=== PATIENT | male | born 1990 | race Caucasian/White ===

== ENCOUNTER 2020-04-17 22:21 | Emergency (ER) | payer SELFPAY ==
[2020-04-17 22:41] VITALS: BP 140/82; PULSE 79; RESP 18; TEMP 36.9; O2SAT 98; BMI 44.4
--- NOTE | 2020-04-17 23:41 | ED.NEUROSD ---
HPI - Neuro Symptoms/Deficit General Chief Complaint: Neuro Symptoms/Deficit Stated Complaint: facial numbmess Time Seen by Provider: 04/17/20 23:37 Source: patient Mode of arrival: ambulatory Limitations: no limitations History of Present Illness HPI Narrative: Patient noticed sudden onset of left-sided facial numbness 2 days ago unable to close his left eye and difficulty in eating food no earache no other motor deficit. No history of Lyme disease no headache no rash patient never had similar episode in the past. Patient hearing is normal vision is normal Onset (ago): day(s) (2) Related Data Previous Rx's Medication Instructions Recorded artifi.tears(hypromellose)(PF) 2 drp OPHTHALMIC-LEFT Q4-6H PRN 04/17/20 [ImproVue] #12 ml prednisone 60 mg PO DAILY #21 tab 04/17/20 valacyclovir [Valtrex] 1,000 mg PO TID #21 tab 04/17/20 Allergies Allergy/AdvReac Type Severity Reaction Status Date / Time No Known Allergies Allergy Unverified 01/10/20 16:44 [No Known Allergies*] Review of Systems Review of Systems: Constitutional : No Weight loss, No Fever, No Chills ENT/Mouth : No sore throat, No Rhinorrhea Eyes: No Eye Pain, No Swelling Cardiovascular : No Chest Pain, no palpitations Respiratory : No Cough, No Sputum, no shortness of breath Gastrointestinal : no Nausea, No Vomiting, No Diarrhea, No abdominal Pain, no black stools Genitourinary : No Dysuria, No Urinary Frequency Musculoskeletal : No joint pain, No Myalgias, No Joint Swelling Skin : No Skin Lesions, No rash Neuro : No extremities Weakness, No Numbness, No Dizziness, No Headache Psych : No Anxiety/Panic, No Depression Heme/Lymph: No Bruising, No Lymphadenopathy Endocrine : No Polyuria, No Polydipsia All other systems reviewed and are negative [facility] Past Medical History Medical History Asthma Social History Social History Advance Directives: No Advance Directives Information Provided: No Physical Exam Vital Signs: Vital Signs: Last Vital Signs Temp 98.5 F 04/17/20 22:41 Pulse 79 04/17/20 22:41 Resp 18 04/17/20 22:41 BP 140/82 H 04/17/20 22:41 Pulse Ox 98 04/17/20 22:41 Body Mass Index 44.4 Const: General: cooperative, healthy appearing, comfortable and no acute distress Orientation/consciousness: patient oriented x3 HENMT: Head: Yes normocephalic and Yes atraumatic Ears: hearing grossly normal bilaterally Face and sinus: Yes sinuses nontender Mouth: Normal oral and palatal mucosa present Eyes: Conjunctivae: conjunctivae normal Sclerae: sclerae normal Corneas: corneas normal Pupils: Equal, round and reactive pupils present Resp: Effort & Inspection: normal respiratory effort Auscultation: clear to auscultation bilaterally Cardio: Rhythm: regular rhythm Heart sounds: S1 normal heart sound present and S2 normal heart sound present GI: Inspection: Yes normal to inspection Palpation (GI): Soft to palpation and nontender Neuro: General: patient oriented x3, gait normal, tone normal, moves all extremities, Normal light touch and pain sensation and no focal motor deficits Cranial nerves: Yes Equal, round and reactive pupils present, Yes Normal accommodation reflex present, Yes Bilaterally intact EOM present, Yes Nystagmus not present, Yes Normal facial strength present (Left 7th lower motor neuron deficit>> Solis's palsy) and Yes Midline tongue present MDM - Neuro Symptoms/Deficit MDM Narrative Medical decision making narrative: Patient with left facial palsy involving forehead clinically lower motor neuron palsy/Solis's palsy no other medical history no prior history of Solis's palsy no Lyme disease exposure no family history of multiple sclerosis or lupus patient is otherwise healthy will discharge patient home on prednisone and Valtrex course for 1 week advised about the eye care and follow-up with neurologist Discharge Plan Discharge Clinical Impression: Left-sided Solis's palsy Patient Disposition: Home, Self-Care Instructions: Solis Palsy (ED) Additional Instructions: Take medication as advised. Care of eye as advised. Follow with neurologist if not better in 2 weeks Prescriptions: New prednisone 20 mg tablet 60 mg PO DAILY Qty: 21 RF: 0 valacyclovir [Valtrex] 1 gram tablet 1,000 mg PO TID Qty: 21 RF: 0 ImproVue 1.7 % drops with applicator 2 drp ophthalmic-Left Q4-6H PRN (Reason: dry eye(s)) Qty: 12 RF: 1 Referrals: Joyce Melchor MD [Physician] - 2 weeks Interventions: ED Discharge Assessment Last Done: 04/18/20 00:03 Discharge Date/Time: 04/18/20 00:03
[2020-04-17] MEDS: predniSONE 20 MG TABLET 60 MG PO (23:42)
== END 2020-04-18 00:03 | disposition home or self-care (01) ==
PROVIDERS: Emergency Provider Internal Medicine
DX: G51.0 Bell's palsy (principal)
CPT/HCPCS: 99283

== ENCOUNTER 2020-07-17 19:34 | Emergency (ER) | payer OTHER, SELFPAY ==
[2020-07-17 20:24] VITALS: BP 131/74; PULSE 76; RESP 18; TEMP 36.6; O2SAT 96; BMI 44.6
--- NOTE | 2020-07-17 20:47 | ED_ITS ---
HPI - Back Pain/Injury General Chief Complaint: Back Pain/Injury Stated Complaint: Back pain Time Seen by Provider: 07/17/20 20:33 Source: patient Mode of arrival: ambulatory Limitations: no limitations History of Present Illness HPI Narrative: 30-year-old male with a past medical history of asthma and chronic back pain presenting to the ED with complaints of acute on chronic back pain in the right upper/mid back after helping his friend move a transmission approximately 5 days ago and his pain is gradually worsening. Denies any other symptoms complaints or concerns at this time. MD elicited complaint: back pain and back injury Pertinent past history: recent trauma (Heavy lifting) Onset (ago): day(s) (Five days ago worse today) Timing: constant and progressively worsening Severity: similar to previous episodes Similar Symptoms Previously: Yes Quality: aching and spasming Location: thoracic spine and right upper back Radiation: none Exacerbating factors: movement Relieving factors: none Context: while lifting Associated symptoms: denies other symptoms Treatments prior to arrival: other (Patient reports he has tried multiple [id number] medications and topical patches and no symptomatic relief) Work related injury: No Related Data Previous Rx's Medication Instructions Recorded artifi.tears(hypromellose)(PF) 2 drp OPHTHALMIC-LEFT Q4-6H PRN 04/17/20 [ImproVue] #12 ml prednisone 60 mg PO DAILY #21 tab 04/17/20 valacyclovir [Valtrex] 1,000 mg PO TID #21 tab 04/17/20 acetaminophen [Tylenol Extra 1,000 mg PO QID PRN #14 tab 07/17/20 Strength] cyclobenzaprine 10 mg PO Q8H #10 tab 07/17/20 ibuprofen 800 mg PO Q8H PRN #14 tab 07/17/20 oxycodone 5 mg PO BID PRN #10 tab 07/17/20 Allergies Allergy/AdvReac Type Severity Reaction Status Date / Time No Known Allergies Allergy Verified 07/17/20 20:28 [No Known Allergies*] Review of Systems Review of Systems: Constitutional : No trauma, No Weight loss, No Fever, No Chills, ENT/Mouth : No Hearing loss, No Ear Pain, No Nasal Congestion, No Sinus Pain, No Hoarseness, No sore throat, No Rhinorrhea, No Swallowing Difficulty Cardiovascular : No Chest Pain, No SOB Respiratory : No Cough, No Dyspnea Gastrointestinal : No Nausea, No Vomiting, No Diarrhea, No abdominal Pain, No Hematochezia, No Melena Genitourinary : No Dysuria, No Urinary Frequency, No Hematuria, No Urinary or Bowel Incontinence/retention Musculoskeletal : + Back pain, No neck pain, No joint stiffness, No joint swelling Skin : No Skin Lesions, No rash or signs of infection Neuro : No Weakness, No radiation, No Numbness, No Paresthesias, No headache, no loss of bowel or bladder incontinence, no saddle anesthesia, Focal weakness, No radiation Denies history of IV drug usage. Yes all other systems are reviewed and are negative [facility] Past Medical History Attestation statement: The following information was validated with the patient. Medical History Asthma Back injury Surgical History No significant past surgical history Social History Social History Advance Directives: No Physical Exam Vital Signs: Vital Signs: Last Vital Signs Temp 97.9 F 07/17/20 20:24 Pulse 76 07/17/20 20:24 Resp 18 07/17/20 20:24 BP 131/74 07/17/20 20:24 Pulse Ox 96 07/17/20 20:24 Body Mass Index 44.6 vital signs have been reviewed as normal and appeared to be correct. Blood pressure normal. Heart rate normal. Respiration rate normal. Temperature normal. Oxygen saturation normal. Appearance: Alert. Oriented X3. No acute distress. Head: Normal external exam. Normocephalic. Atraumatic. Eyes: PERRLA. EOMI. Conjunctiva and sclera normal. Eyelids normal. ENT: Pharynx normal. Uvula midline. Moist mucous membranes. Neck: Normal inspection. Neck supple. FROM. No adenopathy. Thyroid Normal. No meningeal signs. No neck mass noted. CVS: Normal heart rate and rhythm. Heart sound normal. No murmurs noted. Pulses normal throughout. Respiratory: No respiratory distress. Painless inspiration. Breath sounds normal. No wheezes/rales/rhonchi noted. Chest nontender. No accessory muscle usage noted or decreased air movement noted. Abdomen: Soft and nontender. Bowel sounds normal in all 4 quadrants. No distention noted. No organomegaly noted. No visible injury noted. Back: No CVA tenderness. Full range of motion noted. No obvious deformities, or edema. Mild para-spinal muscular tenderness thoracic region. Full ROM in back and lower extremities. 5/5 strength hip extension/flexion, abduction, adduction. Straight leg raise test negative on right; Straight leg raise test negative on left; Reflexes normal ankle and knee bilaterally; EHL motor strength normal bilaterally. No rashes/lesion/induration/fluctuance or sign of infection noted. Patient has a normal steady gait. Skin: Skin warm and dry. Normal skin color. Normal skin turgor. No rashes/lesions/lacerations noted. Extremities: No lower extremity edema. Extremities exhibit normal range of motion. Extremities nontender. Neuro: Oriented X 3. No motor deficit. No sensory deficit. Reflexes normal. Course Course Course Narrative: Pt c likely muscular pain, but could be herniated disc. Neuro exam shows no deficits. Not c/w AAA/epidural abscess/dissection.No high risk Hx (Incont, fever, immunosupp, recent surgery/LP, coag, signif trauma, wt loss, puls mass, hx/o Ca, TB, or IVDU) to warrant MRI/CT today. Not c/w Pyelo/UTI/kidney stone/spinal fx. Not cauda equina syndrome. Imaging not currently indicated. DC c meds and f/u. MDM - Back Pain/Injury Medical Records Attestation: I reviewed the patient's medical records. Discharge Plan Discharge Clinical Impression: Thoracic back pain, Spasm of thoracic back muscle Patient Disposition: Home, Self-Care Instructions: Muscle Spasm (ED) Prescriptions: New cyclobenzaprine 10 mg tablet 10 mg PO Q8H Qty: 10 RF: 0 ibuprofen 800 mg tablet 800 mg PO Q8H PRN (Reason: pain) Qty: 14 RF: 0 acetaminophen [Tylenol Extra Strength] 500 mg tablet 1,000 mg PO QID PRN (Reason: fever or pain) Qty: 14 RF: 0 oxycodone 5 mg tablet 5 mg PO BID PRN (Reason: pain) Qty: 10 RF: 0 No Action prednisone 20 mg tablet 60 mg PO DAILY Qty: 21 RF: 0 valacyclovir [Valtrex] 1 gram tablet 1,000 mg PO TID Qty: 21 RF: 0 ImproVue 1.7 % drops with applicator 2 drp ophthalmic-Left Q4-6H PRN (Reason: dry eye(s)) Qty: 12 RF: 1 Referrals: Physician,Unknown [Primary Care Provider] - 2 days (your pcp) Stand Alone Forms: Work/School Release Print Language: Jordanian
[2020-07-17] MEDS: oxyCODONE HCl Immed Release 5 MG TABLET PO (21:09)
[2020-07-17] MEDS: Cyclobenzaprine HCl 10 MG TABLET PO (21:10)
[2020-07-17] MEDS: Ibuprofen 800 MG TABLET PO (21:10)
--- NOTE | 2020-07-17 21:46 | PC.NURSE ---
PT REPORTS SOME IMPROVEMENT SINCE BEING MEDICATED. AWARE AND AGREEABLE TO DISCHARGE
== END 2020-07-17 21:47 | disposition home or self-care (01) ==
PROVIDERS: Emergency Provider Internal Medicine
DX: M54.6 Pain in thoracic spine (principal); M62.830 Muscle spasm of back; F17.200 Nicotine dependence, unspecified, uncomplicated
CPT/HCPCS: 99283; 99284

== ENCOUNTER 2020-08-12 19:40 | Emergency (ER) | payer OTHER, SELFPAY ==
[2020-08-12 20:22] VITALS: BP 138/81; PULSE 66; RESP 16; TEMP 36.7; O2SAT 100; BMI 43.2
--- NOTE | 2020-08-12 20:30 | ED_ITS ---
HPI - General Adult General Chief complaint: General Medical Stated complaint: strept? Time Seen by Provider: 08/12/20 19:49 Source: patient Mode of arrival: ambulatory Limitations: no limitations History of Present Illness MD complaint: throat pain Onset (ago): day(s) (today) Location: mouth Radiation: non-radiation Severity: mild Quality: burning Pain Consistency: intermittent Relieving factors: none Exacerbating factors: other (swallowing) Associated symptoms: denies other symptoms Treatments prior to arrival: none Related Data Previous Rx's Medication Instructions Recorded artifi.tears(hypromellose)(PF) 2 drp OPHTHALMIC-LEFT Q4-6H PRN 04/17/20 [ImproVue] #12 ml prednisone 60 mg PO DAILY #21 tab 04/17/20 valacyclovir [Valtrex] 1,000 mg PO TID #21 tab 04/17/20 acetaminophen [Tylenol Extra 1,000 mg PO QID PRN #14 tab 07/17/20 Strength] cyclobenzaprine 10 mg PO Q8H #10 tab 07/17/20 ibuprofen 800 mg PO Q8H PRN #14 tab 07/17/20 oxycodone 5 mg PO BID PRN #10 tab 07/17/20 Allergies Allergy/AdvReac Type Severity Reaction Status Date / Time No Known Allergies Allergy Verified 07/17/20 20:28 [No Known Allergies*] Review of Systems Review of Systems: Constitutional : No Fever, No Chills, No Fatigue ENT/Mouth : pos sore throat, No Rhinorrhea Eyes: No Eye Pain, No Swelling, Cardiovascular : No Chest Pain, No SOB Respiratory : No Cough, No Sputum Gastrointestinal : No Nausea, No Vomiting Musculoskeletal : No joint pain, No Myalgias Skin : No Skin Lesions, No rash PMFSH Past Medical History Attestation statement: The following information was validated with the patient. Medical History Asthma Back injury Surgical History No significant past surgical history Social History Social History (Updated 08/12/20 @ 20:34 by Gisele Hargrove DO) Alcohol intake: never Smoking Status: Never smoker Advance Directives: No Advance Directives Information Provided: Yes Physical Exam Vital Signs: Vital Signs: Last Vital Signs Temp 98.1 F 08/12/20 20:22 Pulse 66 08/12/20 20:22 Resp 16 08/12/20 20:22 BP 138/81 08/12/20 20:22 Pulse Ox 100 08/12/20 20:22 Body Mass Index 43.2 Appearance: Alert. Oriented X3. No acute distress. Eyes: Pupils equal, round and reactive to light. ENT: Pharynx mild erythema no exudates Neck: Normal inspection. Neck supple. CVS: Normal heart rate and rhythm. Pulses normal. Respiratory: No respiratory distress. Breath sounds normal. Abdomen: Soft and non-tender. Skin: Skin warm and dry. Normal skin color. Normal skin turgor. Extremities: No lower extremity edema. No calf ttp Neuro: Oriented X 3. No motor deficit. No sensory deficit. Medical Decision Making MDM Narrative Medical decision making narrative: 30 yo male with hx of asthma here with one day of sore throat - no evidence of HAND COREMAKER or deeper space infection, able to swallow, not consistent with strep seems more viral - rapid strep and COVID swab Lab Data Labs: Lab Results 08/12/20 Range/Units 20:32 COVID-19 ([facility]) Negative (Negative) COVID-19 Clin Com See Note Discharge Plan Discharge Clinical Impression: Pharyngitis Qualifiers: Pharyngitis/tonsillitis etiology: other specified organisms Qualified Code(s): J02.8 - Acute pharyngitis due to other specified organisms Patient Disposition: Home, Self-Care Instructions: Pharyngitis (ED) Additional Instructions: return to ED for any worsening symptoms or concerns strep screen negative COVID test negative Prescriptions: No Action prednisone 20 mg tablet 60 mg PO DAILY Qty: 21 RF: 0 valacyclovir [Valtrex] 1 gram tablet 1,000 mg PO TID Qty: 21 RF: 0 ImproVue 1.7 % drops with applicator 2 drp ophthalmic-Left Q4-6H PRN (Reason: dry eye(s)) Qty: 12 RF: 1 cyclobenzaprine 10 mg tablet 10 mg PO Q8H Qty: 10 RF: 0 ibuprofen 800 mg tablet 800 mg PO Q8H PRN (Reason: pain) Qty: 14 RF: 0 acetaminophen [Tylenol Extra Strength] 500 mg tablet 1,000 mg PO QID PRN (Reason: fever or pain) Qty: 14 RF: 0 oxycodone 5 mg tablet 5 mg PO BID PRN (Reason: pain) Qty: 10 RF: 0 Stand Alone Forms: Work/School Release
[2020-08-12 21:15] LABS: COVID-19 Test Negative (Negative)
== END 2020-08-12 22:21 | disposition home or self-care (01) ==
PROVIDERS: Emergency Provider Emergency Medicine; PCP Internal Medicine
DX: J02.8 Acute pharyngitis due to other specified organisms (principal); Z20.822 Contact with and (suspected) exposure to COVID-19; J45.909 Unspecified asthma, uncomplicated
CPT/HCPCS: 36415; 87071; 87635; 87880; 99283; 99284

== ENCOUNTER 2020-12-08 17:48 | Emergency (ER) | payer OTHER, SELFPAY ==
[2020-12-08 18:29] VITALS: BP 127/80; PULSE 77; RESP 18; TEMP 36.8; O2SAT 97; BMI 49.8
[2020-12-08] MEDS: Acetaminophen 325 MG TABLET 650 MG PO (18:33)
--- NOTE | 2020-12-08 18:40 | ED.BACK ---
HPI - Back Pain/Injury General Chief Complaint: Back Pain/Injury Stated Complaint: multiple complaints Time Seen by Provider: 12/08/20 18:40 Source: patient Mode of arrival: ambulatory Limitations: no limitations History of Present Illness HPI Narrative: 30 y/o male with history of mild intermittent asthma, morbid obesity, hx back injuries in the past who presents to the ER with lower back pain for the last 2 days after he helped a friend move. He also reports new onset of right ear pain this morning after swimming yesterday. No hearing loss or drainage. His back pain is lower and on both sides. He denies any trauma but admits to heavy lifting to help his friend move. He states the pain sometimes shoots down to his buttocks. Worse with movement and palpation. He walks back and forth to work each day and it is worsening his pain. He is supposed to go to work again tomorrow. He denies any numbness, saddle paresthesias or incontinence. He hsa not taken any medications for the pain. MD elicited complaint: back pain, back injury and other (right ear pain) Pertinent past history: prior back pain Onset (ago): day(s) Timing: intermittent Severity: moderate Similar Symptoms Previously: Yes Quality: aching and spasming Location: right lower back, left upper back and left lower back Radiation: buttocks Exacerbating factors: movement and walking Relieving factors: immobilization Context: while lifting Associated symptoms: denies other symptoms Related Data Previous Rx's Medication Instructions Recorded artifi.tears(hypromellose)(PF) 1.7 2 drp OPHTHALMIC-LEFT Q4-6H PRN 04/17/ % eye drops with applicator #12 ml (ImproVue) prednisone 20 mg tablet 60 mg PO DAILY #21 tab 04/17/20 valacyclovir 1 gram tablet 1,000 mg PO TID #21 tab 04/17/20 (Valtrex) acetaminophen 500 mg tablet 1,000 mg PO QID PRN #14 tab 07/17/20 (Tylenol Extra Strength) cyclobenzaprine 10 mg tablet 10 mg PO Q8H #10 tab 07/17/20 ibuprofen 800 mg tablet 800 mg PO Q8H PRN #14 tab 07/17/20 oxycodone 5 mg tablet 5 mg PO BID PRN #10 tab 07/17/20 cyclobenzaprine 10 mg tablet 10 mg PO TID PRN #10 tab 12/08/20 ibuprofen 800 mg tablet 800 mg PO Q8H PRN #14 tab 12/08/20 lidocaine 5 % topical patch 1 patch TOPICAL DAILY #15 ea 12/08/20 (Lidoderm) nkomjkia-fgbvfukke-uchalizak 3.5 4 drp OTIC (EAR) RIGHT Q6H #10 ml 12/08/20 mg-10,000 unit/mL-1 % ear drops,susp Allergies Allergy/AdvReac Type Severity Reaction Status Date / Time No Known Allergies Allergy Verified 07/17/20 20:28 [No Known Allergies*] Review of Systems Constitutional: Constitutional: Denies chills, Denies fever(s) and Denies weakness Eyes: Eyes: Reports no additional eye complaints ENT: Denies vertigo, Denies ear discharge, Reports otalgia, Denies hearing loss and Denies sore throat Cardiovascular: Cardiovascular: Denies chest pain and Denies dyspnea Respiratory: Respiratory: Denies dyspnea Genitourinary: Genitourinary: Denies flank pain, Denies testicular pain, Denies urinary frequency, Denies urinary hesitancy, Denies urinary incontinence and Denies urinary urgency Musculoskeletal: Musculoskeletal: Reports back pain and Denies numbness Neurologic: Denies vertigo, Denies focal weakness, Denies numbness and Denies weakness [facility] Past Medical History Attestation statement: The following information was validated with the patient. Medical History Asthma Back injury Surgical History No significant past surgical history Social History Social History (Updated 08/12/20 @ 20:34 by Gisele Hargrove DO) Alcohol intake: never Advance Directives: No Advance Directives Information Provided: Yes Physical Exam Vital Signs: Vital Signs: Last Vital Signs Temp 98.2 F 12/08/20 18:29 Pulse 77 12/08/20 18:29 Resp 18 12/08/20 18:29 BP 127/80 12/08/20 18:29 Pulse Ox 97 12/08/20 18:29 Body Mass Index 49.8 Const: General: comfortable and no acute distress Nutritional Appearance: obese Orientation/consciousness: patient oriented x3 Limitations: no limitations HENMT: Head: Yes normal to inspection, Yes normocephalic and Yes atraumatic Ears: hearing grossly normal bilaterally, TM's normal bilaterally and Abnormal EAC present erythema on the right and localized, edema on the right and localized and EAC tenderness on the right and localized; Negative for no otic discharge General nose exam: Normal external nose present Face and sinus: Yes normal facial exam Mouth: Normal oral and palatal mucosa present, lip normal and tongue normal Teeth and gingiva: dentition normal and gingiva normal Throat: Yes posterior oropharynx normal, Yes tonsils normal and Yes uvula midline Eyes: General: appearance normal, both eyes and all related structures Neck: Neck: Yes normal visual inspection and Yes no lymphadenopathy Chest: Chest palpation & inspection: normal inspection of the chest Resp: Effort & Inspection: normal respiratory effort and able to speak in complete sentences : General: Yes no CVA tenderness Back/Spine/Pelvis: Back: no CVA tenderness Cervical Spine: normal cervical lordosis Thoracic/Lumbar Spine: thoracic and lumbar spine normal to inspection, thoraco-lumbar ROM normal and thoraco-lumbar spasm bilaterally in the upper lumbar Skin: General skin exam: no rashes or lesions noted Neuro: General: patient oriented x3 and gait normal Extrem: General: Yes normal to inspection Course Course Course Narrative: 30 y/o male presenting with low back pain after heavy lifting. Exam and presentation are consistent with muscle strain and spasm. No red flag symptoms of LBP. Will treat with NSAID, muscle relaxer, lidoderm and rest. His right ear exam is consistent with otitis externa. Minimal swelling. Will start abx ear drops. Stable for d/c home with plan for outpatient follow up with PCP as needed. Critical Care Time Critical Care Time Critical Care Time: No Discharge Plan Discharge Clinical Impression: Strain of lumbar region Qualifiers: Encounter type: initial encounter Qualified Code(s): S39.012A - Strain of muscle, fascia and tendon of lower back, initial encounter Otitis externa Qualifiers: Otitis externa type: diffuse Chronicity: acute Laterality: right Qualified Code(s): H60.311 - Diffuse otitis externa, right ear Patient Disposition: Home, Self-Care Instructions: Lower Back Exercises (ED), Low Back Strain (ED), Otitis Externa (ED) Additional Instructions: Use the prescribed antibiotic ear drops for your ear for the next 1 week. Do not get water in your ear. No swimming. Your back pain is most likely due to muscle strain and spasm. No bending, lifting or twisting. Use ice several times per day for 20 minutes at a time for the next 48 hours and then change to heat. Take medications as prescribed to help with pain and discomfort. Follow up with your Primary Care Doctor this week. If your pain worsens, if you develop new numbness, tingling, weakness, loss of function or incontinence call 911 or come back to the ER right away for evaluation. Prescriptions: New fwonswos-owiknnmim-ZY 3.5-10,000-1 mg/mL-unit/mL-% drops,suspension 4 drp otic (ear) right Q6H Qty: 10 RF: 0 cyclobenzaprine 10 mg tablet 10 mg PO TID PRN (Reason: muscle spasm) Qty: 10 RF: 0 ibuprofen 800 mg tablet 800 mg PO Q8H PRN (Reason: pain) Qty: 14 RF: 0 lidocaine [Lidoderm] 5 % adhesive patch,medicated 1 patch topical DAILY Qty: 15 RF: 0 No Action prednisone 20 mg tablet 60 mg PO DAILY Qty: 21 RF: 0 valacyclovir [Valtrex] 1 gram tablet 1,000 mg PO TID Qty: 21 RF: 0 ImproVue 1.7 % drops with applicator 2 drp ophthalmic-Left Q4-6H PRN (Reason: dry eye(s)) Qty: 12 RF: 1 cyclobenzaprine 10 mg tablet 10 mg PO Q8H Qty: 10 RF: 0 ibuprofen 800 mg tablet 800 mg PO Q8H PRN (Reason: pain) Qty: 14 RF: 0 acetaminophen [Tylenol Extra Strength] 500 mg tablet 1,000 mg PO QID PRN (Reason: fever or pain) Qty: 14 RF: 0 oxycodone 5 mg tablet 5 mg PO BID PRN (Reason: pain) Qty: 10 RF: 0 Stand Alone Forms: Work/School Release
== END 2020-12-08 19:19 | disposition home or self-care (01) ==
PROVIDERS: Emergency Provider Emergency Medicine
DX: S39.012A Strain of muscle, fascia and tendon of lower back, initial encounter (principal); X50.0XXA Overexertion from strenuous movement or load, initial encounter; Y93.E6 Activity, residential relocation; Y92.9 Unspecified place or not applicable; Y99.9 Unspecified external cause status; H60.311 Diffuse otitis externa, right ear
CPT/HCPCS: 99283

== ENCOUNTER 2021-11-13 12:47 | Emergency (ER) | payer OTHER, SELFPAY ==
[2021-11-13 13:31] VITALS: BP 151/82; PULSE 81; RESP 20; TEMP 36.6; O2SAT 97; BMI 48.6
[2021-11-13 14:45] LABS: COVID-19 Test Positive (Negative); IDNOW Serial# 55D5AD1C; Influenza A Negative (Negative); Influenza B2 Negative (Negative)
[2021-11-13] MEDS: Cyclobenzaprine HCl 10 MG TABLET PO (15:22)
--- NOTE | 2021-11-13 15:34 | ED_ITS ---
HPI - URI/Sore Throat General Chief Complaint: Back Pain/Injury Stated Complaint: abd pain headache Time Seen by Provider: 11/13/21 15:15 Source: patient Mode of arrival: ambulatory Limitations: no limitations History of Present Illness HPI Narrative: Patient complaining of respiratory symptoms nasal congestion cold for last 2 3 days other family members are also sick with same patient not been vaccinated against COVID also complaining of upper back pain after moving the stuff at work for last few days no shortness of breath no fever Related Data Previous Rx's Medication Instructions Recorded artifi.tears(hypromellose)(PF) 1.7 2 drp ophthalmic-Left Q4-6H PRN 04/17/ % eye drops with applicator dry eye(s) #12 mL (ImproVue) prednisone 20 mg tablet 60 mg PO DAILY #21 tabs 04/17/20 valacyclovir 1 gram tablet 1,000 mg PO TID #21 tabs 04/17/20 (Valtrex) acetaminophen 500 mg tablet 1,000 mg PO QID PRN fever or pain 07/17/20 (Tylenol Extra Strength) #14 tabs cyclobenzaprine 10 mg tablet 10 mg PO Q8H Muscle spasm #10 tabs 07/17/20 ibuprofen 800 mg tablet 800 mg PO Q8H PRN pain #14 tabs 07/17/20 oxycodone 5 mg tablet 5 mg PO BID PRN pain #10 tabs 07/17/20 cyclobenzaprine 10 mg tablet 10 mg PO TID PRN muscle spasm #10 12/08/20 tabs ibuprofen 800 mg tablet 800 mg PO Q8H PRN pain #14 tabs 12/08/20 lidocaine 5 % topical patch 1 patch topical DAILY #15 ea 12/08/20 (Lidoderm) nldtjutq-voipqbdem-nsqaymzcw 3.5 4 drp otic (ear) right Q6H #10 mL 12/08/20 mg-10,000 unit/mL-1 % ear drops,susp cyclobenzaprine 10 mg tablet 10 mg PO Q8H #20 tabs 11/13/21 tramadol 50 mg tablet 50 mg PO Q6H PRN pain #20 tabs 11/13/21 Allergies Allergy/AdvReac Type Severity Reaction Status Date / Time No Known Allergies Allergy Verified 07/17/20 20:28 [No Known Allergies*] Review of Systems Review of Systems: Yes all other systems are reviewed and are negative [facility] Past Medical History Medical History Asthma Back injury Surgical History No significant past surgical history Social History Social History Alcohol intake: never Advance Directives: No Advance Directives Information Provided: No Physical Exam Vital Signs: Vital Signs: Last Vital Signs Temp 97.9 F 11/13/21 13:31 Pulse 81 11/13/21 13:31 Resp 20 11/13/21 13:31 BP 151/82 H 11/13/21 13:31 Pulse Ox 97 11/13/21 13:31 O2 Del Method 11/13/21 13:31 BMI result Body Mass Index 48.6 Appearance: Alert. Oriented X3. No acute distress. ENT: Pharynx normal. Oral Mucosa moist Neck: Normal inspection. Neck supple. CVS: Normal heart rate and rhythm. Pulses normal. Respiratory: No respiratory distress. Equal air entry bilateral, no wheezing/rales/rhonchi Skin: Skin warm and dry. Normal skin color. Normal skin turgor. Extremities: No lower extremity edema. Back: Tenderness paraspinal muscles on the right side no midline focal tenderness good range of movement no rash Neuro: Oriented X 3. MDM - URI/Sore Throat Lab Data Attestation: I reviewed the patient's lab results. Labs: Lab Results 11/13/21 11/13/21 Range/Units 14:23 14:23 COVID-19 (YIMI) Positive A (Negative) COVID-19 Clin Com See Note Influenza Type A (ERIK) Negative (Negative) Influenza Type B (ERIK) Negative (Negative) Influenza A & B Note See Note Discharge Plan Discharge Clinical Impression: COVID-19, Muscle strain of left upper back Patient Disposition: Home, Self-Care Instructions: Thoracic Back Strain (ED), COVID-19 (Coronavirus Disease 2019) (ED) Additional Instructions: Social distancing as advised Ibuprofen and muscle relaxant as prescribed for back pain Follow with PCP if any concerns Prescriptions: New cyclobenzaprine 10 mg tablet 10 mg PO Q8H Qty: 20 0RF tramadol 50 mg tablet 50 mg PO Q6H PRN (Reason: pain) Qty: 20 0RF No Action prednisone 20 mg tablet 60 mg PO DAILY Qty: 21 0RF valacyclovir [Valtrex] 1 gram tablet 1,000 mg PO TID Qty: 21 0RF ImproVue 1.7 % drops with applicator 2 drp ophthalmic-Left Q4-6H PRN (Reason: dry eye(s)) Qty: 12 1RF cyclobenzaprine 10 mg tablet 10 mg PO Q8H Qty: 10 0RF ibuprofen 800 mg tablet 800 mg PO Q8H PRN (Reason: pain) Qty: 14 0RF acetaminophen [Tylenol Extra Strength] 500 mg tablet 1,000 mg PO QID PRN (Reason: fever or pain) Qty: 14 0RF oxycodone 5 mg tablet 5 mg PO BID PRN (Reason: pain) Qty: 10 0RF ilxqimej-ozegpngtg-PG 3.5-10,000-1 mg/mL-unit/mL-% drops,suspension 4 drp otic (ear) right Q6H Qty: 10 0RF cyclobenzaprine 10 mg tablet 10 mg PO TID PRN (Reason: muscle spasm) Qty: 10 0RF ibuprofen 800 mg tablet 800 mg PO Q8H PRN (Reason: pain) Qty: 14 0RF lidocaine [Lidoderm] 5 % adhesive patch,medicated 1 patch topical DAILY Qty: 15 0RF Rx Instructions: leave on most painful area for up to 12 hrs Interventions: ED Discharge Assessment Last Done: 11/13/21 16:09 Discharge Date/Time: 11/13/21 16:10
== END 2021-11-13 16:10 | disposition home or self-care (01) ==
PROVIDERS: Emergency Provider Internal Medicine
DX: U07.1 COVID-19 (principal); S29.012A Strain of muscle and tendon of back wall of thorax, initial encounter; X50.0XXA Overexertion from strenuous movement or load, initial encounter; Y93.89 Activity, other specified; Y92.512 Supermarket, store or market as the place of occurrence of the external cause; Y99.0 Civilian activity done for income or pay
CPT/HCPCS: 87502; 87635; 99283

== ENCOUNTER 2022-03-25 21:04 | Emergency (ER) | payer OTHER, SELFPAY ==
--- NOTE | 2022-03-25 | ECG_ITS ---
Test Reason : SOB CHEST PAIN Blood Pressure : / mmHG Vent. Rate : 095 BPM Atrial Rate : 095 BPM P-R Int : 116 ms QRS Dur : 092 ms QT Int : 342 ms P-R-T Axes : 028 010 035 degrees QTc Int : 429 ms Normal sinus rhythm Minimal voltage criteria for LVH, may be normal variant ( R in aVL ) Borderline ECG No previous ECGs available Referred By: Generic ED Physician Electronically Signed By:Alexandr Alvares
[2022-03-25 21:13] VITALS: BP 143/77; PULSE 89; RESP 16; TEMP 36.2; O2SAT 96; BMI 48.8
--- NOTE | 2022-03-25 21:59 | ED.GENADULT ---
HPI - General Adult General Chief complaint: General Medical Stated complaint: CP/Anxiety after eating Edibles Time Seen by Provider: 03/25/22 21:59 Source: patient Mode of arrival: ambulatory Limitations: no limitations History of Present Illness HPI narrative: Patient no significant past medical history had edible and rhino pill earlier today around 16:00 woke up at 6 with feeling cold whole body feeling weird sleepy and tired. At this time patient feeling much better now patient had edible in the past but never had similar symptoms Related Data Previous Rx's Medication Instructions Recorded artifi.tears(hypromellose)(PF) 1.7 2 drp ophthalmic-Left Q4-6H PRN 04/17/ % eye drops with applicator dry eye(s) #12 mL (ImproVue) prednisone 20 mg tablet 60 mg PO DAILY #21 tabs 04/17/20 valacyclovir 1 gram tablet 1,000 mg PO TID #21 tabs 04/17/20 (Valtrex) acetaminophen 500 mg tablet 1,000 mg PO QID PRN fever or pain 07/17/20 (Tylenol Extra Strength) #14 tabs cyclobenzaprine 10 mg tablet 10 mg PO Q8H Muscle spasm #10 tabs 07/17/20 ibuprofen 800 mg tablet 800 mg PO Q8H PRN pain #14 tabs 07/17/20 oxycodone 5 mg tablet 5 mg PO BID PRN pain #10 tabs 07/17/20 cyclobenzaprine 10 mg tablet 10 mg PO TID PRN muscle spasm #10 12/08/20 tabs ibuprofen 800 mg tablet 800 mg PO Q8H PRN pain #14 tabs 12/08/20 lidocaine 5 % topical patch 1 patch topical DAILY #15 ea 12/08/20 (Lidoderm) [id number]-cujzoftxr-dtlacgsjt 3.5 4 drp otic (ear) right Q6H #10 mL 12/08/20 mg-10,000 unit/mL-1 % ear drops,susp cyclobenzaprine 10 mg tablet 10 mg PO Q8H #20 tabs 11/13/21 tramadol 50 mg tablet 50 mg PO Q6H PRN pain #20 tabs 11/13/21 Allergies Allergy/AdvReac Type Severity Reaction Status Date / Time No Known Allergies Allergy Verified 07/17/20 20:28 [No Known Allergies*] Review of Systems Review of Systems: Yes all other systems are reviewed and are negative [facility] Past Medical History Medical History Asthma Back injury Surgical History No significant past surgical history Social History Social History Alcohol intake: never Advance Directives: No Advance Directives Information Provided: Yes Physical Exam ED Vital Signs: Vital Signs - 24 hr 03/25/22 21:13 03/25/22 23:23 Temperature 97.2 F Pulse Rate 89 80 Respiratory Rate 16 20 Blood Pressure 143/77 H 119/63 Pulse Oximetry 96 95 Oxygen Delivery Method Room Air Room Air BMI result Body Mass Index 48.8 Appearance: Alert. Oriented X3. No acute distress. Eyes: PERRLA, No Nystagmus ENT: Pharynx normal. Oral Mucosa moist Neck: Normal inspection. Neck supple. CVS: Normal heart rate and rhythm. Pulses normal. Respiratory: No respiratory distress. Equal air entry bilateral, no wheezing/rales/rhonchi Abdomen: Soft and nontender. Bowel sounds are present, Skin: Skin warm and dry. Normal skin color. Normal skin turgor. Extremities: No lower extremity edema. No calf tenderness Neuro: Oriented X 3. No motor deficit. Medical Decision Making MDM Narrative Medical decision making narrative: Will check urine drug screening reason Lab Data Labs: Lab Results 03/25/22 Range/Units 22:32 Urine Opiates Screen Not Detected (Not Detect) Urine Fentanyl Screen Not Detected (Not Detect) Ur Barbiturates Screen Not Detected (Not Detect) Ur Phencyclidine Scrn Not Detected (Not Detect) Ur Amphetamines Screen Not Detected (Not Detect) U Benzodiazepines Scrn Not Detected (Not Detect) Urine Cocaine Screen Not Detected (Not Detect) U Marijuana (THC) Screen POSITIVE H (Not Detect) ECG Data Attestation: I personally reviewed and interpreted this ECG as follows: Interpretation: Normal sinus rhythm heart rate 95 beats per minute normal interval normal axis no acute ST wave changes Discharge Plan Discharge Clinical Impression: Cannabis abuse Patient Disposition: Home, Self-Care Instructions: Cannabis Abuse (ED) Additional Instructions: Try to avoid cannabis and other drugs as advised Prescriptions: No Action prednisone 20 mg tablet 60 mg PO DAILY Qty: 21 0RF valacyclovir [Valtrex] 1 gram tablet 1,000 mg PO TID Qty: 21 0RF ImproVue 1.7 % drops with applicator 2 drp ophthalmic-Left Q4-6H PRN (Reason: dry eye(s)) Qty: 12 1RF cyclobenzaprine 10 mg tablet 10 mg PO Q8H Qty: 10 0RF ibuprofen 800 mg tablet 800 mg PO Q8H PRN (Reason: pain) Qty: 14 0RF acetaminophen [Tylenol Extra Strength] 500 mg tablet 1,000 mg PO QID PRN (Reason: fever or pain) Qty: 14 0RF oxycodone 5 mg tablet 5 mg PO BID PRN (Reason: pain) Qty: 10 0RF uecttakk-pgswsqekj-RP 3.5-10,000-1 mg/mL-unit/mL-% drops,suspension 4 drp otic (ear) right Q6H Qty: 10 0RF cyclobenzaprine 10 mg tablet 10 mg PO TID PRN (Reason: muscle spasm) Qty: 10 0RF ibuprofen 800 mg tablet 800 mg PO Q8H PRN (Reason: pain) Qty: 14 0RF lidocaine [Lidoderm] 5 % adhesive patch,medicated 1 patch topical DAILY Qty: 15 0RF Rx Instructions: leave on most painful area for up to 12 hrs cyclobenzaprine 10 mg tablet 10 mg PO Q8H Qty: 20 0RF tramadol 50 mg tablet 50 mg PO Q6H PRN (Reason: pain) Qty: 20 0RF Interventions: ED Discharge Assessment Last Done: 03/25/22 23:26 Discharge Date/Time: 03/25/22 23:27
[2022-03-25 22:49] LABS: Amphetamine Screen Urine Not Detected (Not Detect); Barbiturates, Urine Not Detected (Not Detect); Benzodiazepines Screen Urine Not Detected (Not Detect); Cannabinoid Screen Urine POSITIVE (Not Detect); Cocaine Screen Urine Not Detected (Not Detect); Fentanyl, urine Not Detected (Not Detect); Opiate Screen Urine Not Detected (Not Detect); Phencyclidine Screen Urine Not Detected (Not Detect)
[2022-03-25 23:23] VITALS: BP 119/63; PULSE 80; RESP 20; O2SAT 95
== END 2022-03-25 23:27 | disposition home or self-care (01) ==
PROVIDERS: Emergency Provider Internal Medicine
DX: F12.10 Cannabis abuse, uncomplicated (principal); F41.9 Anxiety disorder, unspecified
CPT/HCPCS: 80307; 93005; 99283; 99284

== ENCOUNTER 2022-07-01 09:18 | Emergency (ER) | payer OTHER, SELFPAY ==
[2022-07-01 09:41] VITALS: BP 134/63; PULSE 70; RESP 18; TEMP 36.1; O2SAT 97; BMI 46.3
--- NOTE | 2022-07-01 10:16 | ED.GENADULT ---
HPI - General Adult General Chief complaint: Back Pain/Injury Stated complaint: Upper back pain Time Seen by Provider: 07/01/22 10:16 Source: patient and RN notes reviewed Mode of arrival: ambulatory Limitations: no limitations History of Present Illness HPI narrative: 32-year-old male presents for evaluation of mid upper back pain. He reports that his symptoms started a couple of days ago. He reports that in the size but his pain worse. He reports a history of back pain and back problems. He states ?I think I have a pinched nerve. ? His pain radiates up into his neck? it is causing me a headache. ? He denies any falls, specific injuries that he can remember. He does report that he does heavy lifting at work Denies any numbness, tingling or weakness PE Denies any lower extremity pain, or weakness Denies any lower back pain Denies any chest pain, shortness of breath, palpitations Related Data Previous Rx's Medication Instructions Recorded artifi.tears(hypromellose)(PF) 1.7 2 drp ophthalmic-Left Q4-6H PRN 04/17/20 % eye drops with applicator dry eye(s) #12 mL (ImproVue) prednisone 20 mg tablet 60 mg PO DAILY #21 tabs 04/17/20 valacyclovir 1 gram tablet 1,000 mg PO TID #21 tabs 04/17/20 (Valtrex) acetaminophen 500 mg tablet 1,000 mg PO QID PRN fever or pain 07/17/20 (Tylenol Extra Strength) #14 tabs cyclobenzaprine 10 mg tablet 10 mg PO Q8H Muscle spasm #10 tabs 07/17/20 ibuprofen 800 mg tablet 800 mg PO Q8H PRN pain #14 tabs 07/17/20 oxycodone 5 mg tablet 5 mg PO BID PRN pain #10 tabs 07/17/20 cyclobenzaprine 10 mg tablet 10 mg PO TID PRN muscle spasm #10 12/08/20 tabs ibuprofen 800 mg tablet 800 mg PO Q8H PRN pain #14 tabs 12/08/20 lidocaine 5 % topical patch 1 patch topical DAILY #15 ea 12/08/20 (Lidoderm) akcxwmxu-vvagmalay-btnnbilpp 3.5 4 drp otic (ear) right Q6H #10 mL 12/08/20 mg-10,000 unit/mL-1 % ear drops,susp cyclobenzaprine 10 mg tablet 10 mg PO Q8H #20 tabs 11/13/21 tramadol 50 mg tablet 50 mg PO Q6H PRN pain #20 tabs 11/13/21 dexamethasone 4 mg tablet 4 mg PO BID #4 tabs 07/01/22 lidocaine 5 % topical patch 3 patch topical DAILY #15 ea 07/01/22 methocarbamol 750 mg tablet 750 mg PO QID PRN muscle spasm #20 07/01/22 tabs Allergies Allergy/AdvReac Type Severity Reaction Status Date / Time No Known Allergies Allergy Verified 07/17/20 20:28 [No Known Allergies*] Review of Systems Constitutional: Constitutional: Reports as per HPI, Denies chills and Denies fatigue Cardiovascular: Cardiovascular: Denies chest pain and Denies dyspnea Respiratory: Respiratory: Denies cough and Denies dyspnea Gastrointestinal: Gastrointestinal: Denies abdominal pain, Denies constipation and Denies vomiting Genitourinary: Genitourinary: Denies difficulty urinating and Denies dysuria Musculoskeletal: Musculoskeletal: Reports back pain Endocrine: Endocrine: Denies fatigue PMFSH Past Medical History Medical History Asthma Back injury Surgical History No significant past surgical history Social History Social History Alcohol intake: never Advance Directives: No Advance Directives Information Provided: No Physical Exam ED Vital Signs: Vital Signs - 24 hr 07/01/22 09:41 Temperature 97 F Pulse Rate 70 Respiratory Rate 18 Blood Pressure 134/63 Pulse Oximetry 97 Oxygen Delivery Method Room Air BMI result Body Mass Index 46.3 Const General: healthy appearing, comfortable, no acute distress, alert and awake Nutritional Appearance: well nourished Orientation/consciousness: patient oriented x3 Eyes Eyelids: Yes eyelids normal Conjunctivae: conjunctivae normal Sclerae: sclerae normal Corneas: corneas normal Pupils: Equal, round and reactive pupils present EOM: EOMs intact bilaterally Resp Effort & Inspection: normal respiratory effort, able to speak in complete sentences, no audible wheezes and not labored Back/Spine/Pelvis Other: No cervical tenderness, no palpable deformities. The patient has good cervical range of motion. Patient does have some thoracic paraspinous muscle tenderness without palpable deformities. No lumbar vertebral tenderness or paraspinous muscle tenderness. Moving all extremities well Skin General skin exam: no rashes or lesions noted and elasticity normal Lesions: no lesions Rashes: no rashes Neuro General: patient oriented x3 Cranial nerves: Yes Equal, round and reactive pupils present Extrem General: Yes full ROM Medical Decision Making Medical Decision Making MDM Narrative: Patient's history exam is most consistent with musculoskeletal pain. He has a history of back pain does have a lifting at work. Denies any specific injury or falls, I feel that an x-ray will have low yield at this time. Patient has no lower back pain, sinusitis, sinus syndrome. He a normal blood pressure, denies any chest pain and has no cardiac history, less likely to be severe cardiac issues. Treat the patient's symptoms as musculoskeletal back pain. This was discussed with the patient, he will follow his doctor Differential Diagnosis Mid back pain Muscle strain Contusion Radiculopathy Disc herniation Discharge Plan Discharge Clinical Impression: Back pain Patient Disposition: Home, Self-Care Instructions: Back Pain (ED) Additional Instructions: You may use Motrin or Tylenol for discomfort Use methocarbamol for muscle spasms. This may make you sleepy, did not drink alcohol or drive after taking Use lidocaine patches as needed Take Bactrim twice daily for 2 days Follow-up with your primary doctor Prescriptions: New methocarbamol 750 mg tablet 750 mg PO QID PRN (Reason: muscle spasm) Qty: 20 0RF dexamethasone 4 mg tablet 4 mg PO BID Qty: 4 0RF lidocaine 5 % adhesive patch,medicated 3 patch topical DAILY Qty: 15 0RF Rx Instructions: leave on most painful area for up to 12 hrs No Action prednisone 20 mg tablet 60 mg PO DAILY Qty: 21 0RF valacyclovir [Valtrex] 1 gram tablet 1,000 mg PO TID Qty: 21 0RF ImproVue 1.7 % drops with applicator 2 drp ophthalmic-Left Q4-6H PRN (Reason: dry eye(s)) Qty: 12 1RF cyclobenzaprine 10 mg tablet 10 mg PO Q8H Qty: 10 0RF ibuprofen 800 mg tablet 800 mg PO Q8H PRN (Reason: pain) Qty: 14 0RF acetaminophen [Tylenol Extra Strength] 500 mg tablet 1,000 mg PO QID PRN (Reason: fever or pain) Qty: 14 0RF oxycodone 5 mg tablet 5 mg PO BID PRN (Reason: pain) Qty: 10 0RF lzgcdwzd-ulhnmpfds-BM 3.5-10,000-1 mg/mL-unit/mL-% drops,suspension 4 drp otic (ear) right Q6H Qty: 10 0RF cyclobenzaprine 10 mg tablet 10 mg PO TID PRN (Reason: muscle spasm) Qty: 10 0RF ibuprofen 800 mg tablet 800 mg PO Q8H PRN (Reason: pain) Qty: 14 0RF lidocaine [Lidoderm] 5 % adhesive patch,medicated 1 patch topical DAILY Qty: 15 0RF Rx Instructions: leave on most painful area for up to 12 hrs cyclobenzaprine 10 mg tablet 10 mg PO Q8H Qty: 20 0RF tramadol 50 mg tablet 50 mg PO Q6H PRN (Reason: pain) Qty: 20 0RF Stand Alone Forms: Work/School Release
== END 2022-07-01 10:56 | disposition home or self-care (01) ==
PROVIDERS: Emergency Provider Emergency Medicine Emergency Medical Services
DX: M54.6 Pain in thoracic spine (principal); M54.50 Low back pain, unspecified; Z79.899 Other long term (current) drug therapy
CPT/HCPCS: 99282; 99283